=== PATIENT | female | born 1965 | race Caucasian/White ===

== ENCOUNTER 2017-03-31 02:53 | Outpatient (CLI) | payer OTHER | END 2017-03-31 02:54 | disposition critical access hospital (66) | DX: R11.2 Nausea with vomiting, unspecified (principal); R19.5 Other fecal abnormalities | CPT/HCPCS: A0425; A0427 ==

== ENCOUNTER 2017-03-31 03:19 | Inpatient (IN) | payer OTHER ==
[2017-03-31] MEDS ORDERED: SODIUM CHLORIDE 0.9% 1,000 ML IV ONE ×3 (03:33→05:31)
--- NOTE | 2017-03-31 03:36 | ED Physician Documentation ---
PD HPI GI BLEED - Stated complaint Stated Complaint: HEMATEMESIS - Chief complaint Chief Complaint: Abd Pain - History obtained from History obtained from: Patient, Family - History of Present Illness Timing - onset: How many days ago (2) Timing - duration: Days (2) Timing - details: Gradual onset, Still present Associated symptoms: Vomiting, Coffee ground emesis, Black/tarry stool Contributing factors: Other (has history of cirrhosis) Improved by: Laying still Similar symptoms before: Has not had sx before Recently seen: Other (has had continued GI work up in [place].) - Additional information Additional information: 51-year-old female with history of alcoholic hepatitis and cirrhosis presents to the emergency department this evening with GI bleeding. She has developed dark tarry stool 2 days ago and has had some coffee-ground emesis as well. She has vomited twice and she has had several black bowel movements.In her home she appeared ill and medics were able to establish an IV and with a small amount of fluid she had marked improvement. She denies current alcohol use and states that she has been seeing a high heel builder, susy barreto at [place] in [place] at the [place] [facility].She does have a history of ascites which is markedly improved and she does not have a history of varices. She has not had GI bleeding previously. Review of Systems Constitutional: denies: Fever Eyes: denies: Decreased vision Ears: denies: Ear pain Nose: denies: Congestion Throat: denies: Sore throat Cardiac: denies: Chest pain / pressure, Palpitations Respiratory: denies: Dyspnea, Cough GI: reports: Nausea, Vomiting, Bloody / black stool. denies: Abdominal Pain, Constipation, Diarrhea : denies: Dysuria, Frequency Skin: denies: Rash Musculoskeletal: denies: Neck pain, Back pain, Extremity pain Neurologic: reports: Generalized weakness. denies: Focal weakness, Numbness PD PAST MEDICAL HISTORY - Past Medical History Past Medical History: Yes Cardiovascular: None Respiratory: None Neuro: None Endocrine/Autoimmune: None GI: Cirrhosis : None HEENT: None Psych: None Musculoskeletal: None Derm: None Other Past Medical History: Ascitis - Past Surgical History Past Surgical History: Yes - Present Medications Home Medications: Ambulatory Orders Medication Instructions Recorded Confirmed Folic Acid 1 mg PO DAILY #30 tablet 05/12/16 03/31/17 Spironolactone [Aldactone] 12.5 mg PO DAILY #30 tablet 05/12/16 03/31/17 Multivit with Calcium,Iron,Min 1 tab PO DAILY 03/31/17 03/31/17 [Multiple Vitamins For Women] Vitamin B Complex 1 tab PO DAILY 03/31/17 03/31/17 - Allergies Allergies/Adverse Reactions: Allergies Allergy/AdvReac Type Severity Reaction Status Date / Time Sulfa (Sulfonamide Allergy Unknown Verified 03/31/17 03:27 Antibiotics) - Social History Does the pt smoke?: No Smoking Status: Never smoker Does the pt drink ETOH?: Yes Does the pt have substance abuse?: No - POLST Patient has POLST: No PD ED PE NORMAL - Vitals Vital signs reviewed: Yes (Normal) - General General: No acute distress, Well developed/nourished - HEENT HEENT: Atraumatic, PERRL, EOMI, Moist mucous membranes, Other (The eyes are nonicteric) - Neck Neck: Supple, no meningeal sign, No bony TTP - Cardiac Cardiac: RRR, No murmur - Respiratory Respiratory: No respiratory distress, Clear bilaterally - Abdomen Abdomen: Soft, Non tender, Other (The abdomen is protuberant and there is a umbilical hernia that is protruding and discolored. It is nontender and easily reducible.) - Rectal Rectal: Other (Stool is guaiac positive) - Back Back: No CVA TTP, No spinal TTP - Derm Derm: Normal color, Warm and dry, No rash - Extremities Extremities: No deformity, No edema - Neuro Neuro: No motor deficit, No sensory deficit - Psych Psych: Normal mood, Normal affect Results - Vitals Vitals: Vital Signs - 24 hr 03/31/17 03/31/17 03/31/17 03:16 03:46 04:01 Temperature 36.2 C L Heart Rate 85 88 80 Respiratory 18 18 15 Rate Blood Pressure 104/73 107/71 103/69 O2 Saturation 96 97 99 03/31/17 04:38 Temperature Heart Rate 96 Respiratory 16 Rate Blood Pressure 100/64 O2 Saturation 97 Oxygen O2 Source Room air - Labs Labs: Laboratory Tests 03/31/17 03/31/17 03/31/17 03:39 03:39 03:39 WBC 14.4 H RBC 3.09 L Hgb 10.0 L Hct 28.1 L MCV 90.8 MCH 32.2 H MCHC 35.5 RDW 13.6 Plt Count 227 MPV 8.8 Neut # 11.8 H Lymph # 1.3 L [place] # 1.2 H Eos # 0.0 Baso # 0.1 Absolute Nucleated RBC 0.00 Nucleated RBCs 0.0 PT 17.5 H INR 1.5 H APTT 28.5 Sodium 130 L Potassium 4.2 Chloride 95 L Carbon Dioxide 25 Anion Gap 10.0 BUN 36 H Creatinine 0.7 Estimated GFR (MDRD) 88 L Glucose 141 H Calcium 8.3 L Total Bilirubin 1.5 H AST 38 ALT 18 Alkaline Phosphatase 61 Troponin I Total Protein 6.3 L Albumin 3.2 Globulin 3.1 Albumin/Globulin Ratio 1.0 Lipase 21 L 03/31/17 03:39 WBC RBC Hgb Hct MCV MCH MCHC RDW Plt Count MPV Neut # Lymph # [place] # Eos # Baso # Absolute Nucleated RBC Nucleated RBCs PT INR APTT Sodium Potassium Chloride Carbon Dioxide Anion Gap BUN Creatinine Estimated GFR (MDRD) Glucose Calcium Total Bilirubin AST ALT Alkaline Phosphatase Troponin I < 0.04 Total Protein Albumin Globulin Albumin/Globulin Ratio Lipase PD MEDICAL DECISION MAKING - ED course Complexity details: reviewed results, re-evaluated patient, considered differential, d/w patient, d/w family ED course: 51-year-old female with upper GI bleeding has had some coffee-ground emesis and some dark stool per rectum. She has been taking ibuprofen gel caps and she takes this on an empty stomach. We were able to obtain stool here in the emergency department which was guaiac positive. She has an elevated BUN relative to her creatinine and consistent with digestion of blood. She does not have a history of varices. Here in the emergency department 2 IV lines are established and blood is typed and crossmatched and the patient will be admitted to the hospital. She is administered Protonix 40 mg IV. Departure - Departure Disposition: 66 [facility] DC/Xfer Clinical Impression: Hyponatremia Alcoholic cirrhosis of liver Qualifiers: Ascites presence: with ascites Qualified Code(s): K70.31 - Alcoholic cirrhosis of liver with ascites GI bleeding Qualifiers: GI bleed type/associated pathology: unspecified gastrointestinal hemorrhage type Qualified Code(s): K92.2 - Gastrointestinal hemorrhage, unspecified
[2017-03-31] MEDS ORDERED: ONDANSETRON 4 MG/2 ML VIAL IVP STA (03:47)
[2017-03-31] MEDS ORDERED: ONDANSETRON 4 MG/2 ML VIAL ONE (03:48)
[2017-03-31 03:51] LABS: BASOPHILS # (AUTO) 0.1 10^3/uL (0.0-0.1); BASOPHILS % (AUTO) 0.5 %; EOSINOPHILS % (AUTO) 0.3 %; HCT - HEMATOCRIT 28.1 % (37.0-47.0); LYMPHOCYTES # (AUTO) 1.3 10^3/uL (1.5-3.5); LYMPHOCYTES % (AUTO) 9.1 %; MEAN CORPUSCULAR HEMOGLOBIN 32.2 pg (27.0-31.0); MEAN CORPUSCULAR HGB CONC 35.5 g/dL (32.0-36.0); MEAN CORPUSCULAR VOLUME 90.8 fL (81.0-99.0); MEAN PLATELET VOLUME 8.8 fL (7.9-10.8); MONOCYTES # (AUTO) 1.2 10^3/uL (0.0-1.0); MONOCYTES % (AUTO) 8.1 %; NEUTROPHILS # (AUTO) 11.8 10^3/uL (1.5-6.6); RED BLOOD COUNT 3.09 10^6/uL (4.20-5.40); RED CELL DISTRIBUTION WIDTH 13.6 % (12.0-15.0); UNCORRECTED WHITE BLOOD COUNT 14.4 x10^3/uL; WHITE BLOOD COUNT 14.4 x10^3/uL (4.8-10.8)
[2017-03-31 03:56] LABS: INR 1.5 (0.8-1.2); PT - PROTHROMBIN TIME 17.5 secs (9.9-12.6)
[2017-03-31 04:04] LABS: BILIRUBIN,TOTAL 1.5 mg/dL (0.2-1.0); CALCIUM 8.3 mg/dL (8.5-10.3); CREATININE 0.7 mg/dL (0.4-1.0); PARTIAL THROMBOPLASTIN TIME 28.5 secs (24.9-33.3); POTASSIUM 4.2 mmol/L (3.5-5.0); TOTAL PROTEIN 6.3 g/dL (6.7-8.2)
[2017-03-31] MEDS ORDERED: LORazepam 2 MG/ML SYRINGE IVP STA (04:31)
[2017-03-31] MEDS ORDERED: PANTOPRAZOLE 40 MG VIAL IVP STA (04:31)
[2017-03-31] MEDS ORDERED: LORazepam 2 MG/ML SYRINGE ONE (04:40)
[2017-03-31] MEDS ORDERED: PANTOPRAZOLE 40 MG VIAL ONE (04:40)
[2017-03-31 04:50] LABS: BILIRUBIN,URINE NEGATIVE (NEGATIVE); PH,URINE 5.5 PH (5.0-7.5)
[2017-03-31 05:17] LABS: UA w/ MICROSCOPIC CHARGE YES
[2017-03-31] MEDS ORDERED: PHYTONADIONE 10 MG/ML AMP IVP STA (05:18)
[2017-03-31] MEDS ORDERED: FOLIC ACID INJ 1 MG, THIAMINE INJ 100 MG, MAGNESIUM SULFATE 2 GM, MULTIVITAMIN 10 ML in... IV STA ×5 (05:19)
[2017-03-31 05:21] LABS: UR CULTURE IF IND NOT INDICATED; WBC,URINE 0-3 /HPF (0-5)
[2017-03-31] MEDS ORDERED: PHYTONADIONE 10 MG/ML AMP ONE (05:26)
[2017-03-31] MEDS ORDERED: MAGNESIUM SULFATE 2 GRAM 50 ML IV ONE ×2 (05:30→11:00)
[2017-03-31] MEDS ORDERED: THIAMINE 100 MG/1 ML 2 ML MDV ONE (05:30)
[2017-03-31] MEDS ORDERED: SODIUM CHLORIDE FLUSH 0.9% 10 ML SYRINGE IVP PRN (06:09)
[2017-03-31] MEDS ORDERED: PANTOPRAZOLE 80 MG in SODIUM CHLORIDE 0.9% 100ML 100 ML IV SCH (07:00)
[2017-03-31 07:59] LABS: MAGNESIUM 1.7 mg/dL (1.7-2.8); PHOSPHORUS 2.9 mg/dL (2.5-4.6)
[2017-03-31] MEDS: CIPROFLOXACIN 400 MG/200 ML 200 ML IV SCH ×2 (08:15→22:02)
[2017-03-31] MEDS: PANTOPRAZOLE 80 MG in SODIUM CHLORIDE 0.9% 100ML 100 ML IV SCH ×3 (08:15→19:02)
[2017-03-31] MEDS: SODIUM CHLORIDE 0.9% 1,000 ML IV SCH ×2 (09:41→18:01)
[2017-03-31 12:07] LABS: INR 1.4 (0.8-1.2)
--- NOTE | 2017-03-31 12:46 | HISTORY & PHYSICAL EXAMINATION ---
DATE OF ADMISSION: 03/31/2017 PRIMARY CARE PROVIDER: Francisco Farmer DO. CHIEF COMPLAINT: Black, tarry stool and coffee ground emesis. HISTORY OF PRESENT ILLNESS: This is a 51-year-old female who has a history of alcoholic cirrhosis mark anthony gnosed April 2016. She denies any alcohol ingestion since July 2016. She had 2 days of black, ta rry stools, approximately 8 since then, and also had several episodes of coffee ground emesis approxi mately 4 times. She denies any lightheadedness. Denies any chest pain. Denies any shortness of breath . Denies any fevers or chills. Upon her evaluation in the emergency room her initial hematocrit is 28 .1 with a hemoglobin of 10.0. Back in April 2016 hemoglobin 12.3, hematocrit 35.4. MCV is currently at 90.8, was 109.5. Patient denies any previous history of GI bleed. She was scoped at her initial wo rkup in the [facility] and had no evidence of varices, gastritis, or ulcers. PAST MEDICAL HISTORY: 1. Diagnosis of alcoholic cirrhosis April 2016. MEDICATIONS UPON ADMISSION: 1. Ativan 1 mg p.o. q. 8 hours p.r.n. anxiety. 2. Zofran ODT 4 mg p.o. q. 6 hours p.r.n. nausea or vomiting. 3. Protonix 40 mg p.o. daily. 4. Spironolactone 12.5 mg p.o. daily. ALLERGIES: Sulfa. SOCIAL HISTORY: Lives with . Smoking never. Alcohol quit July 2016. Prior to that, several glasses of wine daily. FAMILY MEDICAL HISTORY: Brother had alcoholic cirrhosis. REVIEW OF SYSTEMS: All other review of systems are reviewed and are negative except for as in HPI. PHYSICAL EXAMINATION: VITAL SIGNS: Temperature afebrile, heart rate is 101, blood pressure 102/70, respiratory rate is 19, room air saturation 97%. CONSTITUTIONAL: Middle aged woman who appears fairly frail and thin. HEENT: Head normocephalic, atraumatic. Eyes: PERRLA-DC, EOMI. Mouth: No lesions. NECK: No adenopathy. Carotids 2+/4 without bruits. CHEST: Clear to auscultation. COR: Tachycardic, S1, S2 without murmur. ABDOMEN: Slightly distended with umbilical hernia with caput medusa noted, some mild tenderness just above the umbilicus. No rebound, no guarding. Bowel sounds are present. EXTREMITIES: Extremity exam reveals no pedal edema. SKIN: Reveals no rashes. PSYCH: Mood and affect are appropriate. NEURO: Alert and oriented x3, motor strength is intact bilaterally. LABS: As above, also to include EKG is pending. White count of 14.4, hemoglobin 10.0, hematocrit 28.1, platelets 227, MCV 90.8, neutrophils 11.8. Urine shows specific gravity of 1.020, ketones negative, glucose negative, moderate occult blood, nit rite negative, bilirubin negative, urobilinogen negative. Leukocyte esterase negative. Urine RBCs 0-5 , WBCs 0-3, squamous epithelial cells few, rare bacteria, INR 1.5, PTT 28.5. Blood alcohol level less than 5. ASSESSMENT AND PLAN: 1. Upper gastrointestinal bleed, acute, present on admission. General surgery was notified by ER MD echo mejiaarding this patient. Continue with IV Protonix strip, n.p.o., serial hematocrits. Will transfuse 3 units of FFP and patient is typed and screened for TRBC's. The patient has 2 large bore IV's. 2. Alcoholic cirrhosis, chronic, present on admission. Will try to get records from [facility] re garding evaluation done last fall. 3. DVT prophylaxis, use SCD's. Avoid subcutaneous anticoagulation given gastrointestinal bleed. 4. CODE STATUS; THE PATIENT IS FULL CODE. TIME SPENT: 60 minutes. JOB #: [id number] EXT JOB #:[id number]
--- NOTE | 2017-03-31 13:42 | CONSULTATION NOTE ---
DATE OF CONSULTATION: 03/31/2017 00:00:00 REQUESTING PROVIDER: Dr. Branch. INDICATION FOR CONSULTATION: Upper GI bleed. HISTORY OF PRESENT ILLNESS: This is a 51-year-old female with alcoholic cirrhosis who presents to the emergency department for a 2-day history of coffee ground emesis. She initially thought this might be food poisoning, however, the coffee ground emesis did not subside and she sought attention at the emergency department. She denies any bright red blood in her vomit and states that it is all dark. She is also noting dark colored stools. She denies any prior similar episodes. She denies any lightheadedness or dizziness. She was diagnosed with alcoholic cirrhosis approximately 1 year ago and is being treated in [place]. She has not had an alcoholic drink since April of 2016. She denies any prior upper endoscopies. She does have ascites, but has never had an abdominal paracentesis. She is taking spironolactone and Lasix. She does not have any evidence of encephalopathy. Her INR is 1.5 and her albumin is 3.1. Her total bilirubin is 1.5 and her CHILD's score is a B. She does take occasional Advil in the evenings and does so every other day. She denies any epigastric pain or GERD-like symptoms. Her last colonoscopy was performed approximately 1 year ago and was noted to be normal. PAST MEDICAL HISTORY: Significant for alcoholic cirrhosis. She has had no prior abdominal surgeries. HOME MEDICATIONS: Include 1. Folic acid 1 mg p.o. daily. 2. Spirolactone 12.5 mg p.o. daily. 3. Multivitamins. 4. Lasix 40 mg p.o. daily. ALLERGIES TO MEDICATIONS: SULFA. PHYSICAL EXAMINATION: VITAL SIGNS: Temperature is 37.0, heart rate of 104, blood pressure 103/66, respiratory rate 20, O2 saturation is at 100% on room air. GENERAL: The patient is awake, alert, oriented x3 in no acute distress. She is thin. CARDIOVASCULAR: Sinus tachycardia. CHEST: Clear to auscultation bilaterally with no rhonchi or wheezing. ABDOMEN: Soft and nondistended with no palpable ascites. She does have a palpable enlarged umbilical hernia which is easily reducible. EXTREMITIES: Thin appearing and nonedematous. HEENT: No scleral icterus or jaundice is present. LAB VALUES: Sodium 130, potassium 4.2, chloride 95, bicarb 25, BUN 36, creatinine 0.7, glucose 141, total bilirubin 1.5, AST 38, ALT 18, alkaline phosphatase 61. White blood cell count 14.4, hemoglobin 10, hematocrit 28.1, platelets 227, PT 17.5, INR 1.5. ASSESSMENT: This is a 51-year-old female with an upper gastrointestinal bleed. PLAN: The patient is admitted to the medical service, placed in the intensive care unit. Serial H and H will be performed. She has received 1 unit of FFP and a repeat INR is pending. Orthostatic blood pressures should be obtained. A type and cross have been ordered, however, she has positive antibodies and we are waiting for arrival of the blood products. At this time she does not meet transfusion criteria and 4 units of packed red blood cells will be kept on hold. Will plan to proceed with endoscopic evaluation of possible etiology of her upper gastrointestinal bleed including possible variceal bleeding. However, her bleed does seem to be slow and unlikely is representing a rapid variceal bleed. Other etiologies include portal gastropathy and peptic ulcer disease. The patient will be placed on Protonix and will be administered ciprofloxacin. The endoscopic procedure was explained to the patient in detail including potential risks involved specifically including the increased risk of exacerbated bleeding and she understands these risks and agrees to proceed with the procedure. JOB #: [id number] EXT JOB #:[id number]
[2017-03-31 15:38] LABS: HCT - HEMATOCRIT 25.7 % (37.0-47.0); HGB - HEMOGLOBIN 8.8 g/dL (12.0-16.0); MEAN CORPUSCULAR HGB CONC 34.4 g/dL (32.0-36.0); MEAN CORPUSCULAR VOLUME 93.1 fL (81.0-99.0); MEAN PLATELET VOLUME 8.5 fL (7.9-10.8); RED BLOOD COUNT 2.76 10^6/uL (4.20-5.40); RED CELL DISTRIBUTION WIDTH 13.4 % (12.0-15.0); WHITE BLOOD COUNT 14.1 x10^3/uL (4.8-10.8)
[2017-03-31] MEDS: SODIUM CHLORIDE FLUSH 0.9% 10 ML SYRINGE IVP SCH ×2 (18:06→22:02)
[2017-03-31 21:38] LABS: HCT - HEMATOCRIT 23.6 % (37.0-47.0); HGB - HEMOGLOBIN 8.1 g/dL (12.0-16.0); MEAN CORPUSCULAR HEMOGLOBIN 31.8 pg (27.0-31.0); MEAN CORPUSCULAR HGB CONC 34.2 g/dL (32.0-36.0); MEAN PLATELET VOLUME 8.5 fL (7.9-10.8); RED BLOOD COUNT 2.54 10^6/uL (4.20-5.40); RED CELL DISTRIBUTION WIDTH 13.6 % (12.0-15.0); WHITE BLOOD COUNT 10.6 x10^3/uL (4.8-10.8)
[2017-03-31] MEDS: LORazepam 2 MG/ML SYRINGE IVP PRN (22:09)
[2017-04-01] MEDS: SODIUM CHLORIDE 0.9% 1,000 ML IV SCH ×3 (04:28→22:00)
[2017-04-01] MEDS: PANTOPRAZOLE 80 MG in SODIUM CHLORIDE 0.9% 100ML 100 ML IV SCH ×2 (04:29→14:32)
[2017-04-01] MEDS: SODIUM CHLORIDE FLUSH 0.9% 10 ML SYRINGE IVP SCH ×3 (04:55→19:45)
[2017-04-01 06:14] LABS: INR 1.3 (0.8-1.2); PT - PROTHROMBIN TIME 14.7 secs (9.9-12.6)
[2017-04-01 06:16] LABS: BASOPHILS # (AUTO) 0.1 10^3/uL (0.0-0.1); BASOPHILS % (AUTO) 0.9 %; EOSINOPHILS # (AUTO) 0.3 10^3/uL (0.0-0.7); EOSINOPHILS % (AUTO) 3.6 %; HCT - HEMATOCRIT 23.7 % (37.0-47.0); HGB - HEMOGLOBIN 8.3 g/dL (12.0-16.0); LYMPHOCYTES # (AUTO) 1.5 10^3/uL (1.5-3.5); LYMPHOCYTES % (AUTO) 17.2 %; MEAN CORPUSCULAR HEMOGLOBIN 33.1 pg (27.0-31.0); MEAN CORPUSCULAR VOLUME 94.4 fL (81.0-99.0); MONOCYTES # (AUTO) 0.9 10^3/uL (0.0-1.0); MONOCYTES % (AUTO) 10.7 %; NEUTROPHILS # (AUTO) 5.9 10^3/uL (1.5-6.6); NEUTROPHILS % (AUTO) 67.6 %; NUCLEATED RED BLOOD CELLS AUTO 0.1 /100WBC; RED BLOOD COUNT 2.51 10^6/uL (4.20-5.40); RED CELL DISTRIBUTION WIDTH 13.7 % (12.0-15.0); UNCORRECTED WHITE BLOOD COUNT 8.8 x10^3/uL; WHITE BLOOD COUNT 8.8 x10^3/uL (4.8-10.8)
[2017-04-01 06:20] LABS: ALBUMIN/GLOBULIN RATIO 1.2 (1.0-2.2); BILIRUBIN,TOTAL 1.6 mg/dL (0.2-1.0); CALCIUM 7.9 mg/dL (8.5-10.3); CREATININE 0.7 mg/dL (0.4-1.0); MAGNESIUM 2.2 mg/dL (1.7-2.8); PHOSPHORUS 2.1 mg/dL (2.5-4.6); POTASSIUM 3.9 mmol/L (3.5-5.0); TOTAL PROTEIN 5.7 g/dL (6.7-8.2)
[2017-04-01] MEDS: NEUTRA-PHOS 250 MG TABLET PO SCH ×2 (07:59→08:01)
[2017-04-01] MEDS: CIPROFLOXACIN 400 MG/200 ML 200 ML IV SCH ×2 (08:11→20:14)
[2017-04-01] MEDS ORDERED: POTASSIUM PHOSPHATE 15 MMOL in SODIUM CHLORIDE 0.9% 250 ML IV ONE (08:30)
--- NOTE | 2017-04-01 10:31 | PROVIDER PROGRESS NOTE ---
Subjective - Prog Note Date Prog Note Date: 04/01/17 - Subjective Pt reports feeling: No change Subjective: She had two very small dark bowel movements yesterday. She has remained hemodynamically stable. Her H and H has trended down slightly from 07/22 - . She is mentating well. Objective - Vital Signs/Intake & Output Reviewed Vital Signs: Yes Vital Signs: Vital Signs x48h Temp Pulse Resp BP Pulse Ox 04/01/17 10:00 89 15 109/74 100 04/01/17 09:00 86 19 103/69 100 04/01/17 08:00 36.7 C 91 19 101/64 100 04/01/17 07:00 36.6 C 92 19 99/69 100 04/01/17 06:00 36.4 C L 91 18 89/61 L 100 04/01/17 05:00 95 12 97/66 100 04/01/17 04:00 88 20 96/70 99 04/01/17 03:00 90 19 91/66 98 Intake & Output: Intake & Output 03/29/17 03/30/17 03/31/17 04/01/17 23:59 23:59 23:59 23:59 Intake Total 1822 940 Output Total 795 200 Balance 1027 740 - Objective General Appearance: positive: No acute distress Respiratory: positive: No respiratory distress Cardiovascular: positive: Regular rate & rhythm Abdomen: positive: Non-tender, No distention. negative: Guarding Skin: positive: Color nml Extremities: positive: No pedal edema Neurologic/Psychiatric: positive: Oriented x3 - Lab Results Fish Bones: 04/01/17 05:40 04/01/17 05:40 Other Labs: Lab Results x24hrs 04/01/17 04/01/17 04/01/17 Range/Units 05:40 05:40 05:40 WBC 8.8 (4.8-10.8) x10^3/uL RBC 2.51 L (4.20-5.40) 10^6/uL Hgb 8.3 L (12.0-16.0) g/dL Hct 23.7 L (37.0-47.0) % MCV 94.4 (81.0-99.0) fL MCH 33.1 H (27.0-31.0) pg MCHC 35.0 (32.0-36.0) g/dL RDW 13.7 (12.0-15.0) % Plt Count 119 L (130-450) 10^3/uL MPV 9.0 (7.9-10.8) fL Neut # 5.9 (1.5-6.6) 10^3/uL Lymph # 1.5 (1.5-3.5) 10^3/uL [place] # 0.9 (0.0-1.0) 10^3/uL Eos # 0.3 (0.0-0.7) 10^3/uL Baso # 0.1 (0.0-0.1) 10^3/uL Absolute Nucleated RBC 0.01 x10^3/uL Nucleated RBCs 0.1 /100WBC PT 14.7 H (9.9-12.6) secs INR 1.3 H (0.8-1.2) Sodium 131 L (135-145) mmol/L Potassium 3.9 (3.5-5.0) mmol/L Chloride 102 (101-111) mmol/L Carbon Dioxide 21 (21-32) mmol/L Anion Gap 8.0 (6-13) BUN 20 (6-20) mg/dL Creatinine 0.7 (0.4-1.0) mg/dL Estimated GFR (MDRD) 88 L (>89) Glucose 89 (70-100) mg/dL Calcium 7.9 L (8.5-10.3) mg/dL Phosphorus 2.1 L (2.5-4.6) mg/dL Magnesium 2.2 (1.7-2.8) mg/dL Total Bilirubin 1.6 H (0.2-1.0) mg/dL AST 35 (10-42) IU/L ALT 18 (10-60) IU/L Alkaline Phosphatase 56 (42-121) IU/L Total Protein 5.7 L (6.7-8.2) g/dL Albumin 3.1 L (3.2-5.5) g/dL Globulin 2.6 (2.1-4.2) g/dL Albumin/Globulin Ratio 1.2 (1.0-2.2) 03/31/17 03/31/17 03/31/17 Range/Units 21:31 15:30 11:45 WBC 10.6 14.1 H (4.8-10.8) x10^3/uL RBC 2.54 L 2.76 L (4.20-5.40) 10^6/uL Hgb 8.1 L 8.8 L (12.0-16.0) g/dL Hct 23.6 L 25.7 L (37.0-47.0) % MCV 93.0 93.1 (81.0-99.0) fL MCH 31.8 H 32.0 H (27.0-31.0) pg MCHC 34.2 34.4 (32.0-36.0) g/dL RDW 13.6 13.4 (12.0-15.0) % Plt Count 145 153 (130-450) 10^3/uL MPV 8.5 8.5 (7.9-10.8) fL Neut # (1.5-6.6) 10^3/uL Lymph # (1.5-3.5) 10^3/uL [place] # (0.0-1.0) 10^3/uL Eos # (0.0-0.7) 10^3/uL Baso # (0.0-0.1) 10^3/uL Absolute Nucleated RBC x10^3/uL Nucleated RBCs /100WBC PT 16.0 H (9.9-12.6) secs INR 1.4 H (0.8-1.2) Sodium (135-145) mmol/L Potassium (3.5-5.0) mmol/L Chloride (101-111) mmol/L Carbon Dioxide (21-32) mmol/L Anion Gap (6-13) BUN (6-20) mg/dL Creatinine (0.4-1.0) mg/dL Estimated GFR (MDRD) (>89) Glucose (70-100) mg/dL Calcium (8.5-10.3) mg/dL Phosphorus (2.5-4.6) mg/dL Magnesium (1.7-2.8) mg/dL Total Bilirubin (0.2-1.0) mg/dL AST (10-42) IU/L ALT (10-60) IU/L Alkaline Phosphatase (42-121) IU/L Total Protein (6.7-8.2) g/dL Albumin (3.2-5.5) g/dL Globulin (2.1-4.2) g/dL Albumin/Globulin Ratio (1.0-2.2) 03/31/17 Range/Units 11:28 WBC (4.8-10.8) x10^3/uL RBC (4.20-5.40) 10^6/uL Hgb (12.0-16.0) g/dL Hct 24.8 L (37.0-47.0) % MCV (81.0-99.0) fL MCH (27.0-31.0) pg MCHC (32.0-36.0) g/dL RDW (12.0-15.0) % Plt Count (130-450) 10^3/uL MPV (7.9-10.8) fL Neut # (1.5-6.6) 10^3/uL Lymph # (1.5-3.5) 10^3/uL [place] # (0.0-1.0) 10^3/uL Eos # (0.0-0.7) 10^3/uL Baso # (0.0-0.1) 10^3/uL Absolute Nucleated RBC x10^3/uL Nucleated RBCs /100WBC PT (9.9-12.6) secs INR (0.8-1.2) Sodium (135-145) mmol/L Potassium (3.5-5.0) mmol/L Chloride (101-111) mmol/L Carbon Dioxide (21-32) mmol/L Anion Gap (6-13) BUN (6-20) mg/dL Creatinine (0.4-1.0) mg/dL Estimated GFR (MDRD) (>89) Glucose (70-100) mg/dL Calcium (8.5-10.3) mg/dL Phosphorus (2.5-4.6) mg/dL Magnesium (1.7-2.8) mg/dL Total Bilirubin (0.2-1.0) mg/dL AST (10-42) IU/L ALT (10-60) IU/L Alkaline Phosphatase (42-121) IU/L Total Protein (6.7-8.2) g/dL Albumin (3.2-5.5) g/dL Globulin (2.1-4.2) g/dL Albumin/Globulin Ratio (1.0-2.2) Assessment/Plan - Problem List (1) GI bleeding Impression: Documentation from the [place] [facility] was received and does demonstrate known grade one esophageal varices. Given this new finding the patient is not suitable to undergo endoscopy at our institution as we do not have banding capabilities. She is not rapidly bleeding and is being transfused 2 U PRBC now. If she responds appropriately and does not demonstrate any further evidence of ongiong bleeding such as persistent hematemasis a diet can be started and she can be discharged to follow up with her resp ther for endoscopy and prophylactic banding of her known varices. If the patient is to have persistent hematemasis she will need transfer to a facility that can perform variceal banding. This was discussed with Dr. Branch. Qualifiers: GI bleed type/associated pathology: unspecified gastrointestinal hemorrhage type Qualified Code(s): K92.2 - Gastrointestinal hemorrhage, unspecified
--- NOTE | 2017-04-01 15:17 | PROVIDER PROGRESS NOTE ---
Assessment/Plan - Problem List (1) Alcoholic cirrhosis of liver Qualifiers: Ascites presence: with ascites Qualified Code(s): K70.31 - Alcoholic cirrhosis of liver with ascites (2) GI bleeding Qualifiers: GI bleed type/associated pathology: unspecified gastrointestinal hemorrhage type Qualified Code(s): K92.2 - Gastrointestinal hemorrhage, unspecified Assessment/Plan: Nydia is doing well overnight. She had no further hematemesis, or melana. She is now getting her RBCs. She is told she will not have a "scope" due to the varices found on a previous EGD. If she rebleeds she needs to be transferred from here to a [facility] staffed facility. (3) Anemia associated with acute blood loss Assessment/Plan: She is getting her RBCs She will need iron after her discharge. She will need monitoring. - Current Meds Current Meds: Current Medications Generic Name Dose Route Start Last Admin Trade Name Freq PRN Reason Stop Dose Admin Sodium Chloride 1,000 mls @ 100 mls/hr 03/31/17 07:00 04/01/17 14:32 Normal Saline 0.9% IV 100 mls/hr .Q10H JANUSZ Administration Ciprofloxacin 200 mls @ 200 mls/hr 03/31/17 08:00 04/01/17 08:11 Cipro 400 Mg/200 Ml IV 200 mls/hr Q12H JANUSZ Administration Pantoprazole Sodium 80 mg/ 100 mls @ 10 mls/hr 03/31/17 08:00 04/01/17 14:32 Sodium Chloride IV 10 mls/hr .Q10H JANUSZ Administration Lorazepam 1 mg 03/31/17 20:14 03/31/17 22:09 Ativan Inj IVP 1 mg Q6H PRN Administration Anxiety Sodium Chloride 10 ml 03/31/17 06:09 03/31/17 08:16 Normal Saline Flush 0.9% IVP 10 ml PRN PRN Administration NEEDED PER PROVIDER ORDERS Sodium Chloride 10 ml 03/31/17 14:00 04/01/17 14:32 Normal Saline Flush 0.9% IVP 10 ml Q8HR JANUSZ Administration - Lab Result Fish Bone Diagrams: 04/01/17 05:40 04/01/17 05:40 - Additional Planning My Orders: My Active Orders 04/01/17 10:12 General Surgery Consult [CONS] Routine 04/01/17 16:00 CBC W/O DIFF (HEMOGRAM) [HEME] ONCE 04/01/17 Dinner Soft (Low Fiber) Diet [DIET] Subjective - Subjective Patient Reports: Feeling Better, Resting Comfortably, No Complaints Nursing Reports: No Complaints Objective Vital Signs: Vital Signs - 24 hr 03/31/17 03/31/17 03/31/17 16:00 17:00 17:56 Temperature 36.6 C 36.7 C 36.8 C Heart Rate [ 94 100 95 Monitoring electrodes] Respiratory 18 15 16 Rate Blood Pressure [Left Brachial artery] Blood Pressure 107/63 103/65 102/69 [Right Brachial artery] O2 Saturation 100 100 100 03/31/17 03/31/17 03/31/17 19:00 20:00 21:00 Temperature 36.6 C Heart Rate [ 95 95 90 Monitoring electrodes] Respiratory 17 31 H 16 Rate Blood Pressure [Left Brachial artery] Blood Pressure 95/65 102/67 103/62 [Right Brachial artery] O2 Saturation 100 100 100 03/31/17 03/31/17 04/01/17 22:00 23:00 00:00 Temperature Heart Rate [ 94 93 94 Monitoring electrodes] Respiratory 19 20 17 Rate Blood Pressure [Left Brachial artery] Blood Pressure 104/66 99/86 H 101/71 [Right Brachial artery] O2 Saturation 100 99 97 04/01/17 04/01/17 04/01/17 01:00 02:00 03:00 Temperature Heart Rate [ 85 88 90 Monitoring electrodes] Respiratory 19 18 19 Rate Blood Pressure [Left Brachial artery] Blood Pressure 88/48 L 126/71 91/66 [Right Brachial artery] O2 Saturation 99 99 98 04/01/17 04/01/17 04/01/17 04:00 05:00 06:00 Temperature 36.4 C L Heart Rate [ 88 95 91 Monitoring electrodes] Respiratory 20 12 18 Rate Blood Pressure [Left Brachial artery] Blood Pressure 96/70 97/66 89/61 L [Right Brachial artery] O2 Saturation 99 100 100 04/01/17 04/01/17 04/01/17 07:00 08:00 09:00 Temperature 36.6 C 36.7 C Heart Rate [ 92 91 86 Monitoring electrodes] Respiratory 19 19 19 Rate Blood Pressure [Left Brachial artery] Blood Pressure 99/69 101/64 103/69 [Right Brachial artery] O2 Saturation 100 100 100 04/01/17 04/01/17 04/01/17 10:00 10:32 11:00 Temperature Heart Rate [ 89 89 Monitoring electrodes] Respiratory 15 19 Rate Blood Pressure [Left Brachial artery] Blood Pressure 109/74 110/75 109/66 [Right Brachial artery] O2 Saturation 100 100 04/01/17 04/01/17 04/01/17 12:00 13:00 14:00 Temperature 36.8 C 36.8 C Heart Rate [ 92 83 88 Monitoring electrodes] Respiratory 23 21 20 Rate Blood Pressure 108/76 101/69 [Left Brachial artery] Blood Pressure 108/76 [Right Brachial artery] O2 Saturation 100 100 100 04/01/17 15:00 Temperature Heart Rate [ 89 Monitoring electrodes] Respiratory 20 Rate Blood Pressure 110/67 [Left Brachial artery] Blood Pressure [Right Brachial artery] O2 Saturation 100 Oxygen O2 Source Room air I&O (Last 24 Hrs): Intake and Output Totals x24h 03/30/17 03/31/17 04/01/17 23:59 23:59 23:59 Intake Total 1822 2610 Output Total 795 200 Balance 1027 2410 General: Alert, Oriented x3, Cooperative, No acute distress HEENT: PERRLA, EOMI Neck: No JVD, No thyromegaly Neuro: Alert, Oriented Times 3 Cardiovascular: Regular rate, No murmurs Respiratory: Chest non-tender, No respiratory distress, Breath sounds nml Abdomen: Soft, No tenderness Skin: No rashes, No breakdown - Results Results: Laboratory Results WBC 8.8 x10^3/uL (4.8-10.8) 04/01/17 05:40 RBC 2.51 10^6/uL (4.20-5.40) L 04/01/17 05:40 Hgb 8.3 g/dL (12.0-16.0) L 04/01/17 05:40 Hct 23.7 % (37.0-47.0) L 04/01/17 05:40 MCV 94.4 fL (81.0-99.0) 04/01/17 05:40 MCH 33.1 pg (27.0-31.0) H 04/01/17 05:40 MCHC 35.0 g/dL (32.0-36.0) 04/01/17 05:40 RDW 13.7 % (12.0-15.0) 04/01/17 05:40 Plt Count 119 10^3/uL (130-450) L 04/01/17 05:40 MPV 9.0 fL (7.9-10.8) 04/01/17 05:40 Neut # 5.9 10^3/uL (1.5-6.6) 04/01/17 05:40 Lymph # 1.5 10^3/uL (1.5-3.5) 04/01/17 05:40 Bledsoe # 0.9 10^3/uL (0.0-1.0) 04/01/17 05:40 Eos # 0.3 10^3/uL (0.0-0.7) 04/01/17 05:40 Baso # 0.1 10^3/uL (0.0-0.1) 04/01/17 05:40 Absolute Nucleated RBC 0.01 x10^3/uL 04/01/17 05:40 Nucleated RBCs 0.1 /100WBC 04/01/17 05:40 PT 14.7 secs (9.9-12.6) H 04/01/17 05:40 INR 1.3 (0.8-1.2) H 04/01/17 05:40 APTT 28.5 secs (24.9-33.3) 03/31/17 03:39 Sodium 131 mmol/L (135-145) L 04/01/17 05:40 Potassium 3.9 mmol/L (3.5-5.0) 04/01/17 05:40 Chloride 102 mmol/L (101-111) 04/01/17 05:40 Carbon Dioxide 21 mmol/L (21-32) 04/01/17 05:40 Anion Gap 8.0 (6-13) 04/01/17 05:40 BUN 20 mg/dL (6-20) 04/01/17 05:40 Creatinine 0.7 mg/dL (0.4-1.0) 04/01/17 05:40 Estimated GFR (MDRD) 88 (>89) L 04/01/17 05:40 Glucose 89 mg/dL (70-100) 04/01/17 05:40 Calcium 7.9 mg/dL (8.5-10.3) L 04/01/17 05:40 Phosphorus 2.1 mg/dL (2.5-4.6) L 04/01/17 05:40 Magnesium 2.2 mg/dL (1.7-2.8) 04/01/17 05:40 Total Bilirubin 1.6 mg/dL (0.2-1.0) H 04/01/17 05:40 AST 35 IU/L (10-42) 04/01/17 05:40 ALT 18 IU/L (10-60) 04/01/17 05:40 Alkaline Phosphatase 56 IU/L (42-121) 04/01/17 05:40 Ammonia 14.3 umol/L (7-35) 03/31/17 05:44 Troponin I < 0.04 ng/mL (<0.49) 03/31/17 03:39 Total Protein 5.7 g/dL (6.7-8.2) L 04/01/17 05:40 Albumin 3.1 g/dL (3.2-5.5) L 04/01/17 05:40 Globulin 2.6 g/dL (2.1-4.2) 04/01/17 05:40 Albumin/Globulin Ratio 1.2 (1.0-2.2) 04/01/17 05:40 Lipase 21 U/L (22-51) L 03/31/17 03:39 Urine Color YELLOW 03/31/17 04:42 Urine Clarity CLEAR (CLEAR) 03/31/17 04:42 Urine pH 5.5 PH (5.0-7.5) 03/31/17 04:42 Ur Specific [place] 1.020 (1.002-1.030) 03/31/17 04:42 Urine Protein NEGATIVE mg/dL (NEGATIVE) 03/31/17 04:42 Urine Glucose (UA) NEGATIVE mg/dL (NEGATIVE) 03/31/17 04:42 Urine Ketones NEGATIVE mg/dL (NEGATIVE) 03/31/17 04:42 Urine Occult Blood MODERATE (NEGATIVE) H 03/31/17 04:42 Urine Nitrite NEGATIVE (NEGATIVE) 03/31/17 04:42 Urine Bilirubin NEGATIVE (NEGATIVE) 03/31/17 04:42 Urine Urobilinogen 0.2 (NORMAL) E.U./dL (NORMAL) 03/31/17 04:42 Ur Leukocyte Esterase NEGATIVE (NEGATIVE) 03/31/17 04:42 Urine RBC 0-5 /HPF (0-5) 03/31/17 04:42 Urine WBC 0-3 /HPF (0-5) 03/31/17 04:42 Ur Squamous Epith Cells FEW Squamous (<= Few) 03/31/17 04:42 Urine Bacteria Rare /HPF (None Seen) 03/31/17 04:42 Ur Microscopic Review INDICATED 03/31/17 04:42 Urine Culture Comments NOT INDICATED 03/31/17 04:42 Ethyl Alcohol < 5.0 mg/dL 03/31/17 03:40 Blood Type A POSITIVE 03/31/17 03:39 Blood Type Recheck A POSITIVE 03/31/17 05:45 Antibody Screen POSITIVE 03/31/17 03:39 Antibody Identification See Comments 03/31/17 03:39 Crossmatch IS Only See Detail 03/31/17 03:39 - Procedures Procedures: Procedures DRAINAGE OF PERITONEAL CAVITY, PERCUTANEOUS APPROACH, DIAGN (05/11/16)
[2017-04-01 16:55] LABS: HCT - HEMATOCRIT 31.3 % (37.0-47.0); HGB - HEMOGLOBIN 10.9 g/dL (12.0-16.0); MEAN CORPUSCULAR HEMOGLOBIN 32.3 pg (27.0-31.0); MEAN CORPUSCULAR HGB CONC 34.9 g/dL (32.0-36.0); MEAN CORPUSCULAR VOLUME 92.5 fL (81.0-99.0); MEAN PLATELET VOLUME 8.4 fL (7.9-10.8); RED BLOOD COUNT 3.38 10^6/uL (4.20-5.40); RED CELL DISTRIBUTION WIDTH 13.7 % (12.0-15.0); WHITE BLOOD COUNT 10.4 x10^3/uL (4.8-10.8)
[2017-04-01] MEDS: LORazepam 2 MG/ML SYRINGE IVP PRN (20:14)
[2017-04-02] MEDS: PANTOPRAZOLE 80 MG in SODIUM CHLORIDE 0.9% 100ML 100 ML IV SCH (01:00)
[2017-04-02] MEDS: SODIUM CHLORIDE FLUSH 0.9% 10 ML SYRINGE IVP SCH (06:28)
[2017-04-02 07:36] LABS: HCT - HEMATOCRIT 29.7 % (37.0-47.0); HGB - HEMOGLOBIN 10.4 g/dL (12.0-16.0); MEAN CORPUSCULAR HEMOGLOBIN 32.4 pg (27.0-31.0); MEAN CORPUSCULAR HGB CONC 35.2 g/dL (32.0-36.0); MEAN CORPUSCULAR VOLUME 92.2 fL (81.0-99.0); MEAN PLATELET VOLUME 8.5 fL (7.9-10.8); RED BLOOD COUNT 3.22 10^6/uL (4.20-5.40); RED CELL DISTRIBUTION WIDTH 13.6 % (12.0-15.0)
--- NOTE | 2017-04-02 07:38 | Discharge Plan ---
Discharge Plan Disposition: Home, Self Care Condition: Good Prescriptions: Pantoprazole [Protonix] 40 mg PO BID #60 vial Diet: Regular Activity Restrictions: Activity as Tolerated Shower Restrictions: No Driving Restrictions: No Weight Bearing: Full Weight Additional Instructions or Follow Up instructions: Call Dr. Osman on Monday for an appt. Avoid acidic foods and eat low fiber diet as well. Take your protonix and other medications. Thank you, Dr. Branch No Smoking: If you smoke, Please STOP! Call for help.
[2017-04-02] MEDS: CIPROFLOXACIN 400 MG/200 ML 200 ML IV SCH (07:49)
[2017-04-02 07:53] LABS: BILIRUBIN,TOTAL 2.3 mg/dL (0.2-1.0); CALCIUM 7.6 mg/dL (8.5-10.3); CREATININE 0.7 mg/dL (0.4-1.0); POTASSIUM 3.9 mmol/L (3.5-5.0); TOTAL PROTEIN 5.4 g/dL (6.7-8.2)
[2017-04-02 08:38] VITALS: BP 108/73
--- NOTE | 2017-04-02 08:52 | DISCHARGE SUMMARY ---
DATE OF ADMISSION: 03/31/2017 DATE OF DISCHARGE: 04/01/2017 PRIMARY CARE PHYSICIAN: Francisco Farmer Jr. DO ADMISSION DIAGNOSES 1. Upper gastrointestinal bleed, acute. 2. Alcoholic cirrhosis, chronic. DISCHARGE DIAGNOSES 1. Upper gastrointestinal bleed, acute, present on admission. Source not identified. 2. 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 3. Anemia from acute upper GI bleed, quiescent during hospitalization, requiring 2 units of packed red cells. 4. Alcoholic cirrhosis, chronic. 5. Mild thrombocytopenia. CONSULTATIONS: Dr. Dodge, see copy of consult summary of Dr. Dodge, intended to perform an EGD. However, when the past medical records from [facility] and Dr. Farmer revealed the patient had grade 1 varices, she declined. SPECIAL PROCEDURES: None. The patient's hospital course and management, the initial presentation, hospital emergency department evaluation, and hospitalist plan are well described in history and physical, see copy of same. Summary: The patient is a 51-year-old female with history of alcoholic cirrhosis diagnosed in 04/2015. She has had no alcohol intake since 07/2016. She had 2 days of black, tarry stools and also had coffee-ground emesis approximately 4 times. The patient was found to be anemic but not requiring blood immediately. The patient was, therefore, admitted to the hospital. The patient's hemoglobin and hematocrit declined further, and she received 2 units of packed red cells and 2 units of fresh frozen plasma. The patient was monitored and had minimal decline in her H and H overnight and was discharged home. She understands that if she was to have recurrent bleeding, she needs to go to a facility that has capability of EGD with banding or other interventions [place]. The patient's further needing specialty care not available at this facility, if recurrence here needs urgent stabilization and transfer. PHYSICAL EXAMINATION VITAL SIGNS: On day of admission, 36.6, 90, 103/64, 18, room air 99%. EYES: EOMs within normal limits. PERRLA. Nonicteric. MOUTH AND THROAT: Moist mucous membranes. No other pathology. NECK: No lymphadenopathy. No thyromegaly. CHEST WALL: Nontender. Symmetric. BREASTS: No breast exam done. HEART: Normal sinus rhythm. No murmur, rubs, clicks. LUNGS: Clear. Good air movement. ABDOMEN: Soft, nontender all 4 quadrants. Bowel sounds present. RECTAL AND GENITAL: No rectal or genital exam done. EXTREMITIES: No edema. VASCULAR: Distal pulses 1+, posterior tibial bilaterally. Normal capillary refill. SKIN: No suspicious lesions, dermatitis. NEUROLOGICAL: Cognitively intact. Cranial nerves intact. Motor intact. LABORATORY DATA: White count 8.0; 10 and 29.7 hemoglobin and hematocrit, 10.4 and 29.7 night previous, post transfusion 10.9 and 31.3; the patient's platelets are 112, the patient's initial platelets were 153. Sodium 129, potassium 3.9, chloride 104, CO2 is 20, the patient's BUN is 10, creatinine 0.7 , glucose is 98, calcium is 7.6. The patient's total bilirubin is 2.3, initial was 1.6. The patient has normal liver enzymes. Albumin is 2.6. ALLERGIES: THE PATIENT HAS ALLERGY ONLY TO SULFA. DISCHARGE MEDICATIONS 1. Potassium 20 mEq daily. 2. Multivitamin 1 a day. 3. Spironolactone 200 mg daily. 4. Lasix 40 mg daily. 5. Vitamin B 1 tablet daily. 6. Protonix 40 mg daily, prescription for #60. The patient is to follow up with Dr. Francisco Farmer expeditiously and understands if she has rebleeding she is to be seen [facility]. Time spent on discharge 40 minutes including education of the patient, counseling, conversations with the patient's , and collaboration with Case Management and Nursing. JOB #: [id number] EXT JOB #:[id number] [facility]
== END 2017-04-01 08:40 | disposition home or self-care (01) | DRG 378 ==
LOC: EDUNIT# → ED 03:19 → MS 06:09 → ICU 06:48
PROVIDERS: ADMIT Specialist; ATTEND Internal Medicine
PROC: 30233L1 Transfusion of Nonautologous Fresh Plasma into Peripheral Vein, Percutaneous Approach (ICD-10-PCS; principal; 2017-04-01)
PROC: 30233N1 Transfusion of Nonautologous Red Blood Cells into Peripheral Vein, Percutaneous Approach (ICD-10-PCS; 2017-04-01)
DX: K92.2 Gastrointestinal hemorrhage, unspecified (principal); D62 Acute posthemorrhagic anemia; K70.30 Alcoholic cirrhosis of liver without ascites; I85.10 Secondary esophageal varices without bleeding; D69.6 Thrombocytopenia, unspecified; Z87.898 Personal history of other specified conditions; Z79.899 Other long term (current) drug therapy
CPT/HCPCS: 36415; 80053; 80320; 81001; 81003; 82140; 83690; 83735; 84100; 84484; 85014; 85025; 85610; 85730; 86850; 86870; 86900; 86901; 86920; 87086; 87150; 93005; 96365; 96375; 99285